=== PATIENT | male | born 1990 | race Hispanic/Latino ===

== ENCOUNTER 2020-02-02 19:42 | Emergency (ER) | payer SELFPAY ==
[~2020-02-02] VITALS: Ht 167.6 cm; Wt 75.3 kg
[2020-02-02] MEDS ORDERED: PANTOPRAZOLE 40 MG 10ML VIAL IV STA (19:56)
[2020-02-02 20:05] LABS: BASOPHILS # (AUTO) 0.1 (0.0-0.1); BASOPHILS % 0.6 % (0.0-1.0); EOSINOPHILS # (AUTO) 0.1 (0.0-0.4); EOSINOPHILS % 0.6 % (0.0-6.0); HEMATOCRIT 47.6 % (38.2-49.6); HEMOGLOBIN 16.5 g/dL (14.0-18.0); LYMPHOCYTES # (AUTO) 2.7 (1.0-3.2); LYMPHOCYTES % 26.9 % (18.0-39.1); MEAN CORPUSCULAR HEMOGLOBIN 30.3 pg (28-32); MEAN CORPUSCULAR HGB CONC 34.7 g/dL (31-35); MEAN CORPUSCULAR VOLUME 87.5 fL (81-99); MONOCYTES # (AUTO) 1.2 (0.2-0.8); MONOCYTES % 12.1 % (4.4-11.3); NEUTROPHILS # (AUTO) 6.1 (2.1-6.9); NEUTROPHILS % 59.4 % (38.7-80.0); PLATELET COUNT 300 x10e3/uL (140-360); RED BLOOD COUNT 5.44 x10e6/uL (4.3-5.7); RED CELL DISTRIBUTION WIDTH 12.3 % (11.7-14.4)
--- NOTE | 2020-02-02 20:13 | Emergency Department Note ---
History of Present Illnes History of Present Illness Chief Complaint: Abdominal Complaints History of Present Illness This is a 29 year old male Chief Complaint Comment 29 y/o male pt [id number] presents to ED with report of luq pain x3 days; pt reports consumes alcohol "almost everyday." also reports cocaine use approx 2 weeks ago; Endorses extensive w/u for this earlier today and everything appearing normal. He has had this many time sinthe past. He takes nexium for some reflux. He endorses several episodes of anxiety and states this feels similar to that. Historian: Patient Arrival Mode: Car Onset (how long ago): day(s) Location: Left upper abdomen/epigastric/chest Quality: Sharp Radiation: Reports other (Chest) Severity: moderate Onset quality: sudden Duration (how long): day(s) (1) Timing of current episode: sporadic Progression: waxing and waning Chronicity: recurrent Context: Denies recent illness Relieving factors: none Exacerbating factors: none Associated symptoms: Reports chest pain Treatments prior to arrival: none Past Medical/Family History Physician Review I have reviewed the patient's past medical and family history. Any updates have been documented here. Past Medical History Recent Fever: No Clinical Suspicion of Infectio: No New/Unexplained Change in Ment: No Past Medical History: None Past Surgical History: None Review of Systems Review of Systems Constitutional: Reports as per HPI EENTM: Reports no symptoms Cardiovascular: Reports chest pain Respiratory: Reports no symptoms Gastrointestinal: Reports abdominal pain (epigastric) Genitourinary: Reports no symptoms Musculoskeletal: Reports no symptoms Integumentary: Reports no symptoms Neurological: Reports no symptoms Psychological: Reports no symptoms Endocrine: Reports no symptoms Hematological/Lymphatic: Reports no symptoms Physical Exam Related Data Allergies: Coded Allergies: No Known Allergies (Unverified , 02/02/20) Triage Vital Signs Vital Signs Date Time Temp Pulse Resp B/P (MAP) Pulse Ox O2 Delivery O2 Flow Rate FiO2 02/02/20 19:51 99.1 89 17 161/99 98 Room Air Vital signs reviewed: Yes Physical Exam CONSTITUTIONAL Constitutional: Present well-developed, Present well-nourished HENT HENT: Present normocephalic, Present atraumatic, Present oropharynx clear/moist, Present nose normal HENT L/R: Present left ext ear normal, Present right ext ear normal EYES Eyes: Reports PERRL, Reports conjunctivae normal NECK Neck: Present ROM normal PULMONARY Pulmonary: Present effort normal, Present breath sounds normal CARDIOVASCULAR Cardiovascular: Present regular rhythm, Present heart sounds normal, Present capillary refill normal, Present normal rate GASTROINTESTINAL Abdominal: Present soft, Present nontender, Present bowel sounds normal GENITOURINARY Genitourinary: Present exam deferred SKIN Skin: Present warm, Present dry MUSCULOSKELETAL Musculoskeletal: Present ROM normal NEUROLOGICAL Neurological: Present alert, Present oriented x 3, Present no gross motor or sensory deficits PSYCHOLOGICAL Psychological: Present mood/affect normal, Present judgement normal Results Laboratory Result Diagram: 02/02/20 1900 Laboratory Laboratory Tests Test 02/02/20 19:00 White Blood Count 10.20 x10e3/uL (4.8-10.8) Red Blood Count 5.44 x10e6/uL (4.3-5.7) Hemoglobin 16.5 g/dL (14.0-18.0) Hematocrit 47.6 % (38.2-49.6) Mean Corpuscular Volume 87.5 fL (81-99) Mean Corpuscular Hemoglobin 30.3 pg (28-32) Mean Corpuscular Hemoglobin Concent 34.7 g/dL (31-35) Red Cell Distribution Width 12.3 % (11.7-14.4) Platelet Count 300 x10e3/uL (140-360) Neutrophils (%) (Auto) 59.4 % (38.7-80.0) Lymphocytes (%) (Auto) 26.9 % (18.0-39.1) Monocytes (%) (Auto) 12.1 % (4.4-11.3) Eosinophils (%) (Auto) 0.6 % (0.0-6.0) Basophils (%) (Auto) 0.6 % (0.0-1.0) Neutrophils # (Auto) 6.1 (2.1-6.9) Lymphocytes # (Auto) 2.7 (1.0-3.2) Monocytes # (Auto) 1.2 (0.2-0.8) Eosinophils # (Auto) 0.1 (0.0-0.4) Basophils # (Auto) 0.1 (0.0-0.1) Absolute Immature Granulocyte (auto 0.04 x10e3/uL (0-0.1) Lab results reviewed: Yes Imaging Imaging results reviewed: Yes Procedures 12 Lead ECG Interpretation ECG 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 She's been an ongoing issue for him. Doesn't endorse drug use 2 weeks ago. He endorses chronic alcohol abuse. No alcohol recently. There is no aggravating or relieving factors and his pain has been constant for the last few days. He has been seen recently for this and has had a negative workup. Initial differential includes symptomatically cholelithiasis versus ACS versus anxiety among others. Workup including cardiac enzymes, EKG, right upper quadrant ultrasound are largely unremarkable. Doubt emergent process at this time. I discussed results patient as well as expected disease time course and management. They will follow up with their primary care provider or return to the emergency department for new or worsening symptoms. Patient's appropriate for discharge. Reassessment Reassessment time: 20:12 Reassessment Well appearing, NAD Assessment & Plan Final Impression: (1) Epigastric pain Depart Disposition: HOME, SELF-CARE Last Vital Signs Date Time Temp Pulse Resp B/P (MAP) Pulse Ox O2 Delivery O2 Flow Rate FiO2 02/02/20 19:51 99.1 89 17 161/99 98 Room Air Medications in the ED Pantoprazole Sodium 40 mg NOW STAT IV Last administered on 02/02/20at 20:06; Admin Dose 40 MG; Start 02/02/20 at 19:56; Stop 02/02/20 at 19:57; Status UNV VISHAL RUGGIERO MD Feb 02, 2020 20:13
[2020-02-02 20:22] LABS: ALANINE AMINOTRANSFERASE 36 IU/L (0-55); ALBUMIN/GLOBULIN RATIO 1.6 (0.8-2.0); ALKALINE PHOSPHATASE 68 IU/L (40-150); ANION GAP 15.9 mmol/L (8-16); BLOOD UREA NITROGEN 18 mg/dL (7-26); BUN/CREATININE RATIO 17 (6-25); CALCIUM 9.6 mg/dL (8.4-10.2); CARBON DIOXIDE 23 mmol/L (22-29); CHLORIDE 103 mmol/L (98-107); CREATININE, SERUM 1.09 mg/dL (0.72-1.25); EST GLOMERULAR FILTRATION RATE > 60 ML/MIN (60-); GLUCOSE 106 mg/dL (74-118); POTASSIUM 3.9 mmol/L (3.5-5.1); SODIUM 138 mmol/L (136-145)
[2020-02-02 20:34] LABS: CLARITY,URINE SL CLOUDY (CLEAR); COLOR,URINE YELLOW (YELLOW); KETONES,URINE NEGATIVE (NEGATIVE); LEUKOCYTE ESTERASE ,URINE NEGATIVE (NEGATIVE); NITRITE,URINE NEGATIVE (NEGATIVE); PROTEIN,URINE DIPSTICK TRACE (NEGATIVE)
[2020-02-02 20:35] LABS: AMPHETAMINES SCREEN,URINE NEGATIVE (NEGATIVE); BENZODIAZEPINES SCREEN,URINE NEGATIVE (NEGATIVE); BILIRUBIN,URINE SMALL (NEGATIVE); PHENCYCLIDINE SCREEN,URINE NEGATIVE (NEGATIVE); URINE UROBILINOGEN 0.2 mg/dL (0.2 - 1)
[2020-02-02 20:41] LABS: BACTERIA,URINE RARE /HPF; EPITHELIAL CELLS,URINE RARE /LPF; WBC,URINE (MAN) 0-5 /HPF (0-5)
[2020-02-02 20:42] LABS: MUCUS,URINE MODERATE (RARE)
--- NOTE | 2020-02-02 20:47 | Diagnostic Imaging Report ---
EXAMINATION: CHEST SINGLE (PORTABLE) INDICATION: Chest pain. COMPARISON: None FINDINGS: TUBES and LINES: None. LUNGS: Normal lung volumes. Lungs are clear. No consolidations. PLEURA: No pleural effusion or pneumothorax. HEART AND MEDIASTINUM: The cardiomediastinal silhouette is unremarkable. BONES AND SOFT TISSUES: No acute osseous lesion. Soft tissues are unremarkable. UPPER ABDOMEN: No free air under the diaphragm. IMPRESSION: No acute thoracic radiographic abnormality. Signed by: Ronnell Goff MD on 02/02/2020 8:44 PM
--- OUTSIDE RECORDS SUMMARY | 2020-02-02 21:43 | XMS REPORT | Continuity of Care Document ---
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 Allergies, Adverse Reactions, Alerts This patient has no known allergies or adverse reactions. Medications This patient has no known medications. Procedures This patient has no known procedures. Encounters Start Date/Time End Date/Time [facility] Source 2018-12-07 16:39:00 2018-12-07 16:39:00 Emergency E [facility] [id number] [facility] Results Test Description Test Time Test Comments Results Result Comments Source CHEST SINGLE (PORTABLE) 2020-02-02 20:43:00 [facility] [address] [place], [place] [address] Patient Name: YANELY WINTERS III MR #: [id number] : 1990 Age/Sex: 29/M Req #: [id number] Adm Physician: Ordered by: Vishal De Souza MD Report #: [id number] Location: ER Room/Bed: Procedure: [id number] DX/CHEST SINGLE (PORTABLE) Exam Date: 02/02/20 Exam Time: 2014 REPORT STATUS: Signed EXAMINATION: CHEST SINGLE (PORTABLE) INDICATION: Chest pain. COMPARISON: None FINDINGS: TUBES and LINES: None. LUNGS: Normal lung volumes. Lungs are clear. No consolidations. PLEURA: No pleural effusion or pneum othorax. HEART AND MEDIASTINUM: The cardiomediastinal silhouette is unremarkable. BONES AND SOFT TISSUES: No acute osseous lesion. Soft tissues are unremarkable. UPPER ABDOMEN: No free air under the diaphragm. IMPRESSION: No acute thoracic radiographic abnormality. Signed by: Cedrick Sales MD on 02/02/2020 8:44 PM Dictated By: CEDRICK SALES MD 43 Transcribed By: LEONIE on 02/02/202043 COPY TO: VISHAL DE SOUZA MD
--- NOTE | 2020-02-02 21:46 | Diagnostic Imaging Report ---
EXAM: Right upper quadrant Ultrasound INDICATION: Epigastric pain COMPARISON: None. TECHNIQUE: Transverse and longitudinal images of the liver were obtained. FINDINGS: Liver: Size: 16.5 cm in the right midclavicular line, mildly enlarged. Appearance: Diffusely echogenic with small contour. Mass: No focal masses Gallbladder: Normal. No stones. Negative sonographic Ferreira's sign. Bile Ducts: Intrahepatic Ducts: No dilatation Extrahepatic Ducts: Limited Common bile duct is normal measuring 0.3 cm. Free Fluid: No ascites or pleural effusion Vascular: The abdominal aorta and its midpoint has normal caliber measuring 1.9 cm. The inferior vena cava is patent. The main portal vein has normal caliber measuring 0.8 cm with hepatopedal flow. Kidney: The right kidney is normal measuring 10 x 4.6 x 5.0 cm. Pancreas: Not well visualized due to overlying bowel gas. IMPRESSION: 1. Mildly enlarged and echogenic liver which can be seen with hepatic steatosis. 2. No evidence of cholelithiasis or cholecystitis. Signed by: Ronnell Goff MD on 02/02/2020 9:42 PM
== END 2020-02-02 21:55 | disposition home or self-care (01) ==
LOC: ER 20:05
DX: R10.13 Epigastric pain (principal); R10.12 Left upper quadrant pain; F12.90 Cannabis use, unspecified, uncomplicated; F17.210 Nicotine dependence, cigarettes, uncomplicated
CPT/HCPCS: 36415; 71045; 76705; 80053; 80307; 81001; 83690; 84484; 85025; 93005; 99284; C9113